=== PATIENT | female | born 1990 | race Caucasian/White ===

== ENCOUNTER → 2020-05-18 09:08 | Outpatient (CLI) | payer OTHER, SELFPAY ==
--- NOTE | 2020-05-18 | DI.US.S_ITS ---
PROCEDURE: US OB >= 14 WEEKS FETUS INDICATIONS: ANATOMY OUTSIDE/PRIOR DATING DATA: Last menstrual period (LMP): December 27, 2019. LMP-based estimated date of delivery (OZZY): October 02, 2020 . First dating scan (date and location): May 18, 2020 . Estimated date of delivery (OZZY) from first dating scan: October 02, 2020 . TECHNIQUE: Real-time scanning was performed of the fetus, with image documentation and biometric measurements. Endovaginal scanning: Not performed COMPARISON: None. FINDINGS: General: A single living intrauterine gestation is present. Presentation: Variable. Placenta: Placental position is posterior , without previa. Amniotic fluid index: 12.3 cm, normal range is 5-24 cm. Largest vertical pocket measured 3.9 cm. heart rate: 152 beats per minute. Maternal cervical canal: 4.0 cm long. Normal lower limit is 2.5 cm. biometrics: Biparietal diameter: 4.8 cm, correlating with 20 weeks and 4 days Head circumference: 17.9 cm, correlating with 20 weeks and 2 days Abdominal circumference: 15.6 cm, correlating with 20 weeks and 6 days Femur length: 3.2 cm, correlating with 20 weeks and 0 days. Estimated gestational age from initial scan: not applicable. Composite gestational age from present scan: 20 weeks and 3 days Estimated weight and percentile: 352 g which correlates with the 44th percentile based off gestational age. Measurement variability for biometric dating: +/- 7 days from 14 weeks to 15 weeks 6 days gestation, +/- 10 days from 16 weeks to 21 weeks 6 days gestation, +/- 2 weeks from 22 weeks to 27 weeks 6 days gestation, +/- 3 weeks for 28 weeks gestation or later. weight reference: 4500 g or EFW >90/95% is considered macrosomia or large for gestational age. EFW <10% is small for gestational age. EFW 5% or less is considered intra-uterine growth restriction. Anatomic survey: Neuro: Ventricles are non-dilated at less than 10 mm. Cisterna magna is normal at 3-11 mm. Cerebellum is normal in size and morphology. Nuchal skin fold: Normal at less than 6 mm between 14-21 weeks gestational age. Face: Nose and lips, facial profile are normal. Spine: No evidence for spina bifida. Heart: 4-chambered heart is present, with normal ventricular outflow tracts. Diaphragm: Diaphragm is intact. Stomach: Left-sided stomach is present. Kidneys: No hydronephrosis. Normal is less than 5 mm in 2nd trimester, less than 7 mm in 3rd trimester. Cord: 3-vessel cord has orthotopic insertion. Bladder: Normal in size. Extremities: All 4 extremities identified. IMPRESSION: 1. Single living intrauterine gestation with an estimated sonographic gestational age of approximately 20 weeks and 3 days. Estimated weight of approximately 352 g which places the fetus within the 44th percentile based off gestational age. 2. Normal routine second-trimester anatomic screening survey. Dictated by: Jeronimo Mae M.D. on 05/18/2020 at 12:02 Approved by: Jeronimo Mae M.D. on 05/18/2020 at 12:07
== END ==
PROVIDERS: Referring Provider Nurse Practitioner Obstetrics & Gynecology; Visit Provider Nurse Practitioner Obstetrics & Gynecology
DX: Z36.89 Encounter for other specified antenatal screening; Z3A.20 20 weeks gestation of pregnancy
CPT/HCPCS: 76811

== ENCOUNTER → 2020-06-30 06:53 | Outpatient (CLI) | payer OTHER, SELFPAY ==
[2020-06-30 08:08] LABS: Hematocrit 35.2 % (36-46); Hemoglobin 11.8 g/dL (12.0-16.0); Mean Corpuscular HGB Conc 33.5 % (30-36); Mean Corpuscular Hemoglobin 30.5 PG (26-34); Platelet Count 202 X10^3/uL (150-400); Red Blood Cell Count 3.87 X10^6/uL (4.0-5.2); Red Cell Distribution Width 12.8 % (11.6-14.8)
[2020-06-30 08:39] LABS: Glucose Fasting 89 mg/dL (70-100)
[2020-06-30 09:52] LABS: Glucose 1 Hour 132 mg/dL (70-170)
[2020-06-30 10:20] LABS: Glucose Tol Interpretation INTERPRETATION
[2020-06-30 10:27] LABS: Glucose 2 Hour 105 mg/dL (70-140)
== END ==
PROVIDERS: Referring Provider Nurse Practitioner Obstetrics & Gynecology; Visit Provider Nurse Practitioner Obstetrics & Gynecology
DX: Z34.90 Encounter for supervision of normal pregnancy, unspecified, unspecified trimester (principal); Z13.1 Encounter for screening for diabetes mellitus; Z3A.26 26 weeks gestation of pregnancy
CPT/HCPCS: 36415; 82951; 82952; 85027